=== PATIENT | male | born 1960 | race American Indian/Alaskan Native ===

== ENCOUNTER 2017-07-31 12:12 | Emergency (ER) | payer MEDICAID ==
[2017-07-31 12:57] VITALS: BP 174/93
[2017-07-31] MEDS ORDERED: MOTRIN PO ONE (16:27)
--- NOTE | 2017-07-31 17:26 | Emergency Department Report ---
ED Lower Extremity HPI - General Chief Complaint: Pain General Stated Complaint: BILATERAL LEG PAIN Time Seen by Provider: 07/31/17 15:33 Source: patient Mode of arrival: Ambulatory Limitations: No Limitations - History of Present Illness Initial Comments: This is a 57-year-old male nontoxic, well nourished in appearance, no acute signs of distress presents to the ED complaining of bilateral ankle and foot pain 2 months intermittently. Patient he was at [facility] recently and has stated has been diagnosed with gout and received Lortab for pain but denies getting any steroids. Patient is currently ED requesting for a refill prescription for Lortabs for the pain. She stated he has been increased walking and pain subsides with taking Lortabs. Patient denies any trauma to the region. Patient denies any trauma to the region. Denies any ankle swelling or feet swelling, numbness, tingling, joint redness, fever, chills, joint swelling, chest pain, short of breath, calf pain, calf tenderness, hemoptysis. Patient denies recent travels or long car ride. 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 Patient denies any allergies. Past medical history includes hypertension and gout. MD Complaint: ankle injury, foot injury -: Gradual, month(s) (2) Injury: Ankle: Right, Left, Foot: Right, Left Severity: mild Severity scale (0 -10): 5 Improves With: nothing Worsens With: nothing Associated Symptoms: ambulatory. denies: snap/pop sensation, swelling, numbness , tingling, unable to bear weight, able to partially bear weight - Related Data Previous Rx's Medication Instructions Recorded Last Taken Type traMADol [Ultram] 50 mg PO Q6HR PRN #12 tablet 07/31/17 Unknown Rx Allergies Allergy/AdvReac Type Severity Reaction Status Date / Time No Known Allergies Allergy Unverified 07/31/17 12:57 ED Review of Systems ROS: Stated complaint: BILATERAL LEG PAIN Other details as noted in HPI Constitutional: denies: chills, fever Eyes: denies: eye pain, eye discharge, vision change ENT: denies: ear pain, throat pain Respiratory: denies: cough, shortness of breath, wheezing Cardiovascular: denies: chest pain, palpitations Endocrine: no symptoms reported Gastrointestinal: denies: abdominal pain, nausea, diarrhea Genitourinary: denies: urgency, dysuria Musculoskeletal: denies: back pain, joint swelling, arthralgia Skin: denies: rash, lesions Neurological: denies: headache, weakness, paresthesias Psychiatric: denies: anxiety, depression Hematological/Lymphatic: denies: easy bleeding, easy bruising ED Past Medical Hx - Past Medical History Previous Medical History?: Yes Hx Hypertension: Yes Additional medical history: gout - Surgical History Past Surgical History?: No - Social History Smoking Status: Current Every Day Smoker Substance Use Type: Alcohol - Medications Home Medications: Home Medications Medication Instructions Recorded Confirmed Last Taken Type traMADol [Ultram] 50 mg PO Q6HR PRN #12 tablet 07/31/17 Unknown Rx ED Physical Exam - General Limitations: No Limitations General appearance: alert, in no apparent distress - Head Head exam: Present: atraumatic, normocephalic, normal inspection - Eye Eye exam: Present: normal appearance, PERRL, EOMI. Absent: scleral icterus, conjunctival injection, nystagmus, periorbital swelling, periorbital tenderness Pupils: Present: normal accommodation - ENT ENT exam: Present: normal exam, normal orophraynx, mucous membranes moist, TM's normal bilaterally, normal external ear exam - Neck Neck exam: Present: normal inspection, full ROM. Absent: tenderness, meningismus, lymphadenopathy, thyromegaly - Respiratory Respiratory exam: Present: normal lung sounds bilaterally. Absent: respiratory distress, wheezes, rales, rhonchi, stridor, chest wall tenderness, accessory muscle use, decreased breath sounds, prolonged expiratory - Cardiovascular Cardiovascular Exam: Present: regular rate, normal rhythm, normal heart sounds. Absent: bradycardia, tachycardia, irregular rhythm, systolic murmur, diastolic murmur, rubs, gallop - GI/Abdominal GI/Abdominal exam: Present: soft, normal bowel sounds. Absent: distended, tenderness, guarding, rebound, rigid, diminished bowel sounds - Rectal Rectal exam: Present: deferred - Extremities Exam Extremities exam: Present: normal inspection, full ROM, normal capillary refill. Absent: tenderness, pedal edema, joint swelling, calf tenderness - Expanded Lower Extremity Exam Left Hip exam: Present: normal inspection (bilateral exam), full ROM Upper Leg exam: Present: normal inspection (bilateral exam), full ROM Knee exam: Present: normal inspection (bilateral exam), full ROM Lower Leg exam: Present: normal inspection (bilateral exam), full ROM. Absent: tenderness, swelling, abrasion, laceration, ecchymosis, deformity, crepidus, dislocation, erythema, palpable cord, Janeth's sign Ankle exam: Present: normal inspection (bilateral exam), full ROM. Absent: tenderness, swelling, abrasion, laceration, ecchymosis, deformity, crepidus, dislocation, erythema, anterior draw sign Foot/Toe exam: Present: normal inspection (bilateral exam), full ROM. Absent: tenderness, swelling, abrasion, laceration, ecchymosis, deformity, crepidus, dislocation, erythema, amputation, puncture wound, foreign body, calcaneal tenderness, tenderness at base of 5th metatarsal, nail avulsion, subungual hematoma Neuro vascular tendon exam: Present: no vascular compromise. Absent: pulse deficit, abnormal cap refill, motor deficit, sensory deficit, tendon deficit, extremity cold to touch, pallor, abnormal 2-point discrimination, decreased fine /light touch, foot drop, peroneal nerve deficit, significant pain with passive ROM of distal joint Gait: Positive: observed and normal - Back Exam Back exam: Present: normal inspection, full ROM. Absent: tenderness, CVA tenderness (R), CVA tenderness (L), muscle spasm, paraspinal tenderness, vertebral tenderness, rash noted - Neurological Exam Neurological exam: Present: alert, oriented X3, CN II-XII intact, normal gait, reflexes normal - Psychiatric Psychiatric exam: Present: normal affect, normal mood - Skin Skin exam: Present: warm, dry, intact, normal color. Absent: rash ED Course Vital Signs 07/31/17 07/31/17 12:55 17:01 Temperature 97.5 F L Pulse Rate 53 L Respiratory 18 20 Rate Blood Pressure 174/93 O2 Sat by Pulse 100 Oximetry - Reevaluation(s) Reevaluation #1: 07/31/17 17:30 Patient is speaking in full sentences with no signs of distress noted. ED Lower Extremity MDM - Medical Decision Making 57-year-old male that presents with bilateral foot strain. There is no acute signs of cellulitis or joint infection. Patient received ibuprofen 800 mg by mouth in the ED. Patient discharged with Ultram and was instructed not to operate any machinery while taking Ultram due to sedation/drowsiness. Patient was referred to follow-up with Dr. De La Fuente in 3-5 days or if symptoms such as joint redness, joint swelling, or any worsening symptoms to return to emergency room as soon as possible. Wells criteria 0 point there is no obvious signs of any DVT. Patient is hemodynamically stable with stable vital signs. Patient states he is feeling better. At time time of discharge, the patient does not seem toxic or ill in appearance. No acute signs of distress noted. Patient agrees to discharge treatment plan of care. No further questions noted by the patient. Critical care attestation.: If time is entered above; I have spent that time in minutes in the direct care of this critically ill patient, excluding procedure time. ED Disposition Clinical Impression: Strain of foot Qualifiers: Encounter type: initial encounter Laterality: unspecified laterality Qualified Code(s): S96.919A - Strain of unspecified muscle and tendon at ankle and foot level, unspecified foot, initial encounter Disposition: TO HOME OR SELFCARE Is pt being admited?: No Does the pt Need Aspirin: No Condition: Stable Instructions: Tramadol (By mouth), RICE Therapy (ED) Additional Instructions: follow-up with Dr. De La Fuente in 3-5 days or if symptoms such as joint redness, joint swelling, or any worsening symptoms to return to emergency room as soon as possible. Rest, elevate and ice extremity. Do not operate any machinery while taking the Ultram due to sedation/drowsiness. Prescriptions: traMADol [Ultram] 50 mg PO Q6HR PRN #12 tablet PRN Reason: Pain Referrals: PRIMARY CAREMD [Primary Care Provider] - 3-5 Days JOSE DE LA FUENTE MD [Staff Physician] - 3-5 Days [facility] [Outside] - 3-5 Days [facility] [Outside] - 3-5 Days
== END 2017-07-31 17:45 | disposition home or self-care (01) ==
LOC: ED 12:12
DX: S96.911A Strain of unspecified muscle and tendon at ankle and foot level, right foot, initial encounter (principal); S96.912A Strain of unspecified muscle and tendon at ankle and foot level, left foot, initial encounter; I10 Essential (primary) hypertension; F17.200 Nicotine dependence, unspecified, uncomplicated; M10.9 Gout, unspecified; X58.XXXA Exposure to other specified factors, initial encounter; Y93.9 Activity, unspecified; Y99.9 Unspecified external cause status; Y92.89 Other specified places as the place of occurrence of the external cause
CPT/HCPCS: 99282

== ENCOUNTER 2017-09-05 09:26 | Emergency (ER) | payer MEDICAID ==
[2017-09-05 09:44] VITALS: BP 138/94
--- NOTE | 2017-09-05 10:08 | Emergency Department Report ---
Chief Complaint: Extremity Injury, Lower Stated Complaint: LEG PAIN Time Seen by Provider: 09/05/17 09:58 - HPI History of Present Illness: 57-year-old male with a history of peripheral vascular disease being managed by Dr. Edson Liu at [facility] presents with bilateral medial aspect ankle pain 3 weeks. Patient states he walks fine with a cane. Patient denies any falls or trauma recently. Patient states he was told by his primary care to get a lower vascular study prior to following up. Patient denies any calf pain bilaterally and he states he is only because he is ankles are hurting. He denies fall, trauma, fever, chills, nausea, vomiting or any other problems - ROS Review of Systems: As noted in HPI - Exam Vital Signs: Vital Signs 09/05/17 09:36 Pulse Rate 83 Respiratory 16 Rate Blood Pressure 138/94 O2 Sat by Pulse 100 Oximetry Physical Exam: GENERAL: Alert and oriented x3, no apparent distress, normal gait with a cane EXTREMITIES/MUSCULOSKELETAL: No cyanosis, clubbing, rash, lesions or edema. Bilateral medial aspect of the ankle tender to palpation, non-swelling, non- erythematous, no pedal edema. Homans sign negative, nontender to palpation NEUROLOGIC: The patient is cooperative with no focal neurologic deficits. Normal speech. Normal sensation in bilateral upper and lower extremities, No loss of sensation, SKIN: Warm and dry, No lesions, No ulceration or induration present. MSE screening note: Focused history and physical exam performed. Due to findings the following was ordered: ED Medical Decision Making - Medical Decision Making This 57-year-old male in no acute distress Lower extremity arterial Doppler studies ordered bilateral Patient was seen by fast track provider ED Disposition for MSE Condition: Stable
--- NOTE | 2017-09-05 11:29 | Emergency Department Report ---
ED Extremity Problem HPI - General Chief complaint: Extremity Injury, Lower Stated complaint: LEG PAIN Time Seen by Provider: 09/05/17 09:58 Source: patient, family Mode of arrival: Ambulatory Limitations: No Limitations - History of Present Illness Initial comments: 57-year-old male with a history of peripheral vascular disease being an chronic neuropathy managed by Dr. Edson Heredia who is his primary care physician and he has an appointment with them at [facility]. Presents with kady medial aspect ankle pain 3 weeks. Patient states he walks fine with a cane. Patient denies any falls or trauma recently. Patient states he was told by his primary care to get a lower vascular study prior to following up. Patient denies any calf pain bilaterally and he states he is only because he is ankles are hurting. He denies fall, trauma, fever, chills, nausea, vomiting or any other problems. Patient said the pain is 8 out of 10 and burning pain. She said that Motrin is not helping his pain. Patient is currently on ibuprofen for pain that was prescribed by his doctor. He has a history of high cholesterol, neuropathy, hypertension, gout. He had bilateral lower extremity stent placed in 2016 along with stent placement in his heart. Patient said that the doctor did not tell him that he needed a heart stent he just went to have stent placement both his legs and when he woke up he had a heart stent. Denies any history of heart disease or heart attack. Denies any chest pain or shortness of breath. Denies any back pain. Patient also has arthritis. He is on Plavix for stent placement metoprolol, hydralazine, R amlodipineHCTZ for high blood pressure, Colcrys and allopurino for Gout. Patient is here with his family he said he just moved from [place], and he is establishing doctors to manage his medical problems. MD Complaint: extremity pain, joint paint Onset/Timin -: week(s) Location: bilateral lower extremity History of Same: Yes (Neuropathy and PVD) -: No myalgia, Yes arthralgia, No fever, No associated dyspnea, No associated chest pain Radiation: distal Severity scale (0 -10): 8 Quality: burning, aching Consistency: intermittent Improves with: immobilization, rest Worsens with: weight bearing, walking, exertion Associated Symptoms: arthralgias. denies: chest pain, shortness of breath, fever, myalgias, rash - Related Data Previous Rx's Medication Instructions Recorded Last Taken Type traMADol [Ultram 50 MG tab] 50 mg PO Q6HR PRN #16 tablet 09/05/17 Unknown Rx Allergies Allergy/AdvReac Type Severity Reaction Status Date / Time aspirin AdvReac Vomiting Verified 09/05/17 09:44 ED Review of Systems ROS: Stated complaint: LEG PAIN Other details as noted in HPI Comment: All other systems reviewed and negative Constitutional: no symptoms reported Eyes: denies: vision change Respiratory: no symptoms reported Cardiovascular: denies: chest pain, palpitations, dyspnea on exertion, orthopnea , edema, syncope, paroxysmal nocturnal dyspnea Gastrointestinal: denies: abdominal pain, nausea, vomiting, diarrhea, constipation Musculoskeletal: denies: back pain, joint swelling, arthralgia, myalgia Skin: denies: rash, pruritus Neurological: paresthesias. denies: headache, weakness, numbness, confusion, abnormal gait, vertigo ED Past Medical Hx - Past Medical History Previous Medical History?: Yes Hx Hypertension: Yes Additional medical history: gout. PVD - Surgical History Past Surgical History?: Yes Additional Surgical History: vascular surgery on B/L lower extremities - Family History Family history: hypertension - Social History Smoking Status: Current Every Day Smoker Substance Use Type: None - Medications Home Medications: Home Medications Medication Instructions Recorded Confirmed Last Taken Type traMADol [Ultram 50 MG tab] 50 mg PO Q6HR PRN #16 tablet 09/05/17 Unknown Rx ED Physical Exam - General Limitations: No Limitations General appearance: alert, in no apparent distress - Head Head exam: Present: atraumatic, normocephalic, normal inspection - Eye Eye exam: Present: normal appearance, PERRL, EOMI Pupils: Present: normal accommodation - ENT ENT exam: Present: normal exam, normal orophraynx, mucous membranes moist, TM's normal bilaterally, normal external ear exam - Neck Neck exam: Present: normal inspection, full ROM, other (no C-spine tenderness). Absent: tenderness, meningismus, lymphadenopathy - Respiratory Respiratory exam: Present: normal lung sounds bilaterally. Absent: respiratory distress, wheezes, rales, rhonchi, stridor, chest wall tenderness, accessory muscle use - Cardiovascular Cardiovascular Exam: Present: regular rate, normal rhythm, normal heart sounds. Absent: systolic murmur, diastolic murmur - GI/Abdominal GI/Abdominal exam: Present: soft, normal bowel sounds. Absent: distended, tenderness, guarding, rebound, rigid, organomegaly, mass, bruit, pulsatile mass , hernia - Extremities Exam Extremities exam: Present: normal inspection, full ROM, normal capillary refill , other (no clubbing, cyanosis or edema to extremities. no palpable pedal pulses. Kady PT faint on U/S and lt DP sánchez on ultrasound. neurovascular compromise. Pulses are 2+ to extremities except pedal pulses are one plus. Extremities with good color, sensation and movement.Skin temparture to feet cool. Patient able to walk but he said he has a lot of pain. Negative Homans sign. No joint crepitus, effusion or deformity.). Absent: tenderness, pedal edema, joint swelling, calf tenderness - Expanded Lower Extremity Exam Left Hip exam: Present: normal inspection, full ROM, pelvic stability. Absent: tenderness, swelling, abrasion, laceration, ecchymosis, deformity, crepidus, dislocation, erythema, external rotation, internal rotation, shortening Upper Leg exam: Present: normal inspection, full ROM. Absent: tenderness, swelling, abrasion, laceration, ecchymosis, deformity, crepidus, dislocation, erythema Knee exam: Present: normal inspection, full ROM, full knee extension. Absent: tenderness, swelling, abrasion, laceration, ecchymosis, deformity, crepidus, dislocation, erythema, effusion, pain w/ pronation/supination Lower Leg exam: Present: normal inspection, full ROM. Absent: tenderness, swelling, abrasion, laceration, ecchymosis, deformity, crepidus, dislocation, erythema, palpable cord, Janeth's sign Ankle exam: Present: normal inspection, full ROM. Absent: tenderness, swelling , abrasion, laceration, ecchymosis, deformity, crepidus, dislocation, erythema, anterior draw sign Foot/Toe exam: Present: normal inspection, full ROM. Absent: tenderness, swelling, abrasion, laceration, ecchymosis, deformity, crepidus, dislocation, erythema, amputation, puncture wound, foreign body, calcaneal tenderness, tenderness at base of 5th metatarsal, nail avulsion, subungual hematoma Neuro vascular tendon exam: Present: pulse deficit (unable to palpate pulses. Faint pulses 2 both PT and left DP, right DP pulse better with ultrasound.), abnormal cap refill, sensory deficit (diminished sensation to both feet), decreased fine/light touch. Absent: no vascular compromise (a shallow with diminished sensation to both feet), motor deficit, tendon deficit, extremity cold to touch, pallor, abnormal 2-point discrimination, foot drop, peroneal nerve deficit, significant pain with passive ROM of distal joint Gait: Positive: observed and limited by pain Right Hip exam: Present: normal inspection, full ROM, pelvic stability. Absent: tenderness, swelling, abrasion, laceration, ecchymosis, deformity, crepidus, dislocation, erythema, external rotation, internal rotation, shortening Upper Leg exam: Present: normal inspection, full ROM. Absent: tenderness, swelling, abrasion, laceration, ecchymosis, deformity, crepidus, dislocation, erythema Knee exam: Present: normal inspection, full ROM, full knee extension. Absent: tenderness, swelling, abrasion, laceration, ecchymosis, deformity, crepidus, dislocation, erythema, effusion, pain w/ pronation/supination Lower Leg exam: Present: normal inspection, full ROM. Absent: tenderness, swelling, abrasion, laceration, ecchymosis, deformity, crepidus, dislocation, erythema, palpable cord, Janeth's sign Ankle exam: Present: normal inspection, full ROM. Absent: tenderness, swelling , abrasion, laceration, ecchymosis, deformity, crepidus, dislocation, erythema Foot/Toe exam: Present: normal inspection, full ROM. Absent: tenderness, swelling, abrasion, laceration, ecchymosis, deformity, crepidus, dislocation, erythema, amputation, puncture wound, foreign body, calcaneal tenderness, tenderness at base of 5th metatarsal, nail avulsion, subungual hematoma Neuro vascular tendon exam: Present: pulse deficit (no palpable pulses to feed. Ultrasound with faint pulses 2 bilateral PT and left DP and more audible pulses 2 right DP), abnormal cap refill (capillary refill is greater than 3 seconds to feet), sensory deficit (a mini sensation to both feet), decreased fine/light touch. Absent: no vascular compromise, motor deficit, tendon deficit , extremity cold to touch, pallor, abnormal 2-point discrimination, foot drop, peroneal nerve deficit, significant pain with passive ROM of distal joint Gait: Positive: observed and limited by pain - Back Exam Back exam: Present: normal inspection, full ROM. Absent: tenderness, CVA tenderness (R), CVA tenderness (L), muscle spasm, paraspinal tenderness, vertebral tenderness, rash noted - Neurological Exam Neurological exam: Present: alert, oriented X3, normal gait, motor sensory deficit (diminished sensation to both feet. Normal motor function), reflexes normal - Psychiatric Psychiatric exam: Present: normal affect, normal mood - Skin Skin exam: Present: warm, dry, intact, normal color. Absent: rash ED Course Vital Signs 09/05/17 09/05/17 09:36 15:52 Temperature 98.2 F Pulse Rate 83 Respiratory 16 Rate Blood Pressure 138/94 O2 Sat by Pulse 100 Oximetry - Reevaluation(s) Reevaluation #1: 09/05/17 12:36 Patient received percocet 5/325 2 tablets emergency room for pain which helped his pain. 09/05/17 13:12 Reevaluation #2: 09/05/17 12:50 Dr Matute called for Consult Reevaluation #3: 09/05/17 13:45 Still awaiting callback from Dr. matute who is vascular specialist. I spoke with Dr. Bishop regarding the case. Reevaluation #4: 09/05/17 15:[address] Matute with vascular surgeon and gave him result of bilateral arterial Doppler ultrasound and he that patient can be seen outpatient to have patient ED Medical Decision Making - Radiology Data Radiology results: report reviewed VASCULAR LAB PRELIMINARY REPORT BLE ARTERIAL DOPPLER COMPLETED FEM-FEM BYPASS IS PATENT BILATERAL FEM-POP BYPASS NOT PATENT - Medical Decision Making ED course: Patient reports that he is having bilateral ankle and pain in both feet. He has a history of PVD and had bypass surgery to bilateral lower extremity and 2016 in [facility]. He said he had stent placed. Patient is a smoker and I discussed with him that usually if he smokes that he has this kind of surgery he will need to stop because this can make the stents close up. I discussed smoking cessation with patient and he said these trying to stop. Patient was given Percocet 5/325 2 tablets in the emergency room which he said makes his pain better but it did not completely relieve his pain. He also said that he has a history of heart stent placed at the same time when they did his stent in his lower extremities. Patient was sent from Dr. Heredia office who is a primary care physician Noe office who is the primary care physician and gave patient requisition for outpatient Doppler ultrasound arterial. Patient said after the ultrasound he came to the ER because he was in a lot of pain. Patient is here with a family member said that he moved patient from [place], and patient is new to [place] and has to fine new doctors for him. Dr. Heredia as schedule appointment for patient to return to his office on 09/06 at 10 AM for initial visit and also to review ultrasound. I spoke with Dr. Matute who is the vascular surgeon oil pump station operator chief I gave him results of ultrasound which shows that patient has bilateral fem-popliteal bypasses that is not patent and fem-fem bypass is patent. Today said that patient can be discharged home to follow up with him in his office in 2-3 days. Patient pedal pulses are not palpable. Pulses are audible with ultrasound with faint bilateral PT and left DP and stronger soundinf DP to right foot. This information was also given to Dr. matute. He said that this is probably chronic and patient can go home. I discussed the patient's presentation, clinical findings and ultrasound reports with Dr. Mack and she directed me to call vascular which I did. I discussed this case with patient and his family member and he will keep appointment to see primary care tomorrow and also will schedule an appointment to see vascular doctor in 2-3 days. Patient discharged home a prescription for Ultram and given instruction to stop smoking. Critical care attestation.: If time is entered above; I have spent that time in minutes in the direct care of this critically ill patient, excluding procedure time. ED Disposition Clinical Impression: PVD (peripheral vascular disease), Nicotine abuse, Abnormal peripheral pulse Pain in extremity Qualifiers: Extremity pain location: lower extremity Laterality: bilateral Qualified Code(s ): M79.604 - Pain in right leg; M79.605 - Pain in left leg; M79.605 - Pain in left leg Occlusion of femoropopliteal bypass graft Qualifiers: Encounter type: initial encounter Qualified Code(s): T82.898A - Other specified complication of vascular prosthetic devices, implants and grafts, initial encounter Disposition: DC-01 TO HOME OR SELFCARE Is pt being admited?: No Does the pt Need Aspirin: No Condition: Stable Instructions: Arthralgia (ED), Peripheral Vascular Disorders (ED), How to Stop Smoking (ED) Additional Instructions: please return to the emergency room if he develops. change in color, cold feet , increasing pain and change in nail to feet otherwise follow-up with Dr. matute who is the vascular surgeon and keep your appointment tomorrow U primary care physician Please stop smoking as this will cause your vascular disease and your heart disease to worsen and it will close you Stent up. Increasing her fluid intake Take Ultram as prescribed and please do not drive or operate heavy machinery of this medication causes drowsiness Prescriptions: traMADol [Ultram 50 MG tab] 50 mg PO Q6HR PRN #16 tablet PRN Reason: Pain Referrals: ANDREA HEREDIA MD [Referring] - 09/06/17 9:30 am DAY,ELIZABETH Mcguire MD [Staff Physician] - 2-3 Days Forms: Accompanied Note, Work/School Release Form(ED)
[2017-09-05] MEDS ORDERED: PERCOCET 5/325 PO ONE (12:00)
== END 2017-09-05 16:16 | disposition home or self-care (01) ==
LOC: ED 09:26
DX: T82.898A Other specified complication of vascular prosthetic devices, implants and grafts, initial encounter (principal); M25.572 Pain in left ankle and joints of left foot; M25.571 Pain in right ankle and joints of right foot; I73.9 Peripheral vascular disease, unspecified; I10 Essential (primary) hypertension; M10.9 Gout, unspecified; Z79.82 Long term (current) use of aspirin
CPT/HCPCS: 93925